=== PATIENT | male | born 1990 | race Caucasian/White ===

== ENCOUNTER → 2023-11-13 15:17 | Outpatient (REF) | payer BC, SELFPAY | LOC: HWRAD 15:17 | PROVIDERS: ATTENDING PHYSICIAN Family Medicine | DX: E04.1 Nontoxic single thyroid nodule (principal) | CPT/HCPCS: 76536 ==

== ENCOUNTER → 2024-04-08 11:14 | Outpatient (REF) | payer BC, SELFPAY | LOC: HWRAD 11:14 | PROVIDERS: ATTENDING PHYSICIAN Family Medicine | DX: S62.514A Nondisplaced fracture of proximal phalanx of right thumb, initial encounter for closed fracture (principal) | CPT/HCPCS: 73140 ==